=== PATIENT | male | born 1960 | race African-American/Black ===

== ENCOUNTER 2018-01-01 10:44 | Outpatient (CLI) | payer MEDICARE ==
[2018-01-01 11:16] LABS: BASOPHILS % 0.6 (0.0-1.5); MEAN CORPUSCULAR HEMOGLOBIN 30.9 pg (28.0-34.0); MONOCYTES % 5.7 % (0.0-11.0); NEUTROPHILS # 9.4 # k/uL (1.4-7.7)
[2018-01-01 11:32] LABS: eGFR (Non-African) > 60
--- NOTE | 2018-01-01 17:47 | Diagnostic Imaging Report ---
JILLIAN TITUS [facility] [place] [facility] [address] [facility] [address] [address] Report Submission Date: Jan 01, 2018 11:22:26 AM FINISHER PLATE Patient Study Name: ADRIENNE ROJAS Date: Jan 01, 2018 10:54:17 AM FINISHER PLATE Modality Type: DX Gender: M Description: ABDOMEN : 62 Institution: [facility] [place] [facility] Physician: JILLIAN TITUS Examination: Obstruction series History: PT STATES ABDOMINAL PAIN IN THE LUQ X 2 WEEKS. PT STATES NO ABDOMINAL SURGERIES (Hx) Findings: 2 views obtained of the abdomen. No abnormal dilation of the large or small bowel. Air and stool throughout the large bowel. No suspicious calcification projecting over the renal fossa or the lower pelvic region. Pelvic phleboliths. Lumbar spine degenerative changes. Left L5/S1 hemisacralization. Impression: No obstruction. No suspicious calcifications by plain film sensitivity. Electronically signed on Jan 01, 2018 11:22:26 AM FINISHER PLATE by: Genaro LOUIE
== END 2018-01-01 10:45 ==
LOC: LAB 10:44
PROVIDERS: ATTEND Family Medicine
DX: R10.12 Left upper quadrant pain (principal); R10.13 Epigastric pain
CPT/HCPCS: 36415; 74019; 80053; 83690; 85025

== ENCOUNTER 2018-01-02 09:41 | Outpatient (CLI) | payer MEDICARE ==
--- NOTE | 2018-01-02 11:31 | Diagnostic Imaging Report ---
JILLIAN TITUS [facility] [id number] [facility] [address] [place], [place]. [address] Report Submission Date: Jan 02, 2018 11:17:03 AM PROPOSAL COORDINATOR Patient Study Name: ADRIENNE ROJAS Date: Jan 02, 2018 10:18:49 AM PROPOSAL COORDINATOR Modality Type: CT\SR Gender: M Description: CT ABD PELVIS W/ CON : 62 Institution: [facility] Physician: JILLIAN TITUS CT abdomen and pelvis with contrast History: Left upper quadrant pain for 2 weeks. Leukocytosis. Technique: Helically acquired images were obtained from the hemidiaphragms to the pelvic floor following IV contrast. Findings: The liver, spleen, adrenal glands, pancreas and kidneys are unremarkable. Small and large bowel loops are normal in caliber. The abdominal aorta is nonaneurysmal. The appendix is normal. The bladder, seminal vesicles and prostate gland are unremarkable. There are multiple pelvic phleboliths. There is no free fluid in the abdomen or pelvis. There are patchy areas of lucency involving the sacrum and iliac bones bilaterally. These multifocal lytic bone lesions may represent the sequelae of metastatic disease or perhaps myeloma. There is moderate to severe disc space narrowing at L4/5. Impression: There are multifocal lytic bone lesions involving the sacrum and the ilii bilaterally. These findings would be concerning for metastatic disease or potentially myeloma. Please correlate with the patient's clinical history. Bone scan versus pelvic MRI could be obtained for further assessment depending upon the clinical scenario. Otherwise, no acute intra-abdominal or intrapelvic abnormality. Degenerative disc disease at L4/5. Electronically signed on Jan 02, 2018 11:17:03 AM PROPOSAL COORDINATOR by: Priscilla LOUIE
== END 2018-01-02 09:46 | disposition home or self-care (01) ==
LOC: RAD 09:41
PROVIDERS: ATTEND Family Medicine
DX: R10.12 Left upper quadrant pain (principal); D72.825 Bandemia
CPT/HCPCS: 74177; Q9967

== ENCOUNTER 2018-02-24 11:28 | Day surgery (SDC) | payer MEDICARE ==
[~2018-02-24 11:28] MED LIST: GLYCOPYRROLATE 0.2 MG/1 ML 1 ML ONE; LACTATED RINGERS 1,000 ML IV.SOLN IV ONE; LIDOCAINE HCL 2% PF 100MG/5ML VIAL IJ ONE; PROPOFOL 200 MG/20 ML VIAL IV ONE
--- NOTE | 2018-02-24 13:33 | GI Report ---
REFERRING PHYSICIAN: Dr. Justino Banuelos NURSING ADMIN: Lambert Crowder MD PROCEDURE MEDICATION: Propofol as per anesthesia. INDICATIONS: This 58-year-old man has been having a lot of epigastric pain and apparently, back pain and by bone scan, there is a question of metastatic disease to his bone. He has a lot of heartburn, indigestion, and epigastric discomfort. He was a [id number] before stopping 2 years ago. He drinks about 12 beers a week that he admits to. He is referred for an evaluation. On exam, he is kind of a chronically ill-appearing man. Lungs with decreased breath sounds. He is tender all over the epigastric area to palpation. Has kind of a rigid-appearing abdomen. PROCEDURE PERFORMED: Endoscopy and biopsies. PROCEDURE: An Sprooki video endoscope was passed through the esophagus under direct visualization. He has grade 2 esophagitis at the GE junction, though we did biopsy it to rule out Snow's. No obvious tumor. In the cardia of the stomach, no obvious mass. He does have gastritis. Biopsies were taken in the antrum for pathology and H. Pylori. Duodenal bulb was very inflamed. Lot of edema, erythema, friability, and erosions. The first and second part of the duodenum, otherwise, looked normal. Patient tolerated the procedure well. FINDINGS: 1. Esophagitis. 2. Gastritis. 3. Severe duodenitis. RECOMMENDATIONS: 1. I will put him on a PPI daily of omeprazole before meals. 2. Avoid nonsteroidal's. 3. Avoid alcohol and tobacco. 4. Further recommendations pending the biopsy results. 5. He apparently had a colonoscopy 2 years ago in [place] and apparently there were benign polyps. 6. Follow up with Dr. Banuelos. cc: Dr. Justino LOUIE
== END 2018-02-24 12:42 | disposition home or self-care (01) ==
LOC: OPSURG 11:28
PROVIDERS: ATTEND Internal Medicine Gastroenterology
DX: K21.0 Gastro-esophageal reflux disease with esophagitis (principal); K29.70 Gastritis, unspecified, without bleeding; K29.80 Duodenitis without bleeding
CPT/HCPCS: 43239; 88305; J2001; J2704; J3490; J7120; S1016

== ENCOUNTER 2019-01-05 13:44 | Outpatient (CLI) | payer MEDICARE ==
[2019-01-05 14:36] LABS: eGFR (Non-African) > 60
[2019-01-05 15:24] LABS: SEGMENTED NEUTROPHILS % 62 % (39-79)
--- NOTE | 2019-01-05 19:01 | Diagnostic Imaging Report ---
PATIENT MR#: [id number] PATIENT PATIENT NAME: ADRIENNE ROJAS DATE OF : 1960 REFERRING PHYSICIAN: Justino Banuelos EXAM DATE: 01/05/2019 ACCESSION NUMBER: [id number] EXAM DESCRIPTION: CHEST 2VIEW HISTORY: DYSPNEA ON EXERTION, LYTIC LESIONS ON BONE SCAN. COMPARISON: Abdominal radiographs January 01, 2018. CHEST RADIOGRAPH, FRONTAL AND LATERAL: Upper mediastinum: Not widened. Heart: No cardiomegaly. Lungs: Mild elevation of the left hemidiaphragm, with wanting of the costophrenic angle, similar but progress compared to the prior abdominal series. No lobar infiltrate, pulmonary edema, pneumothorax or significant effu anitha. Skeleton: Partial left 7th rib osteotomy. No lytic lesions are specifically observed, although nuclea [facility] medicine bone scan is more sensitive for detection of osseous lesions. IMPRESSION: Elevation of the left hemidiaphragm with chronic blunting and scarring of the left costop hrenic angle associated with left 7th rib partial osteotomy. No acute pulmonary infiltrate. Read by: Dr. Ronald Renteria Transcribed by: Ronald Renteria Transcribed Date: 01/05/2019 7:01:15 PM Electronically signed by: Dr. Ronald Renteria Date signed: 01/05/2019 7:01:15 PM
--- NOTE | 2019-01-05 19:05 | Diagnostic Imaging Report ---
PATIENT MR#: [id number] PATIENT PATIENT NAME: ADRIENNE ROJAS DATE OF : 1960 REFERRING PHYSICIAN: Justino Banuelos EXAM DATE: 01/05/2019 ACCESSION NUMBER: [id number] EXAM DESCRIPTION: L SPINE 2 OR 3 VIEWS CLINICAL HISTORY: CHRONIC BACK PAIN , LYTIC LESIONS ON PELVIS. PT STATES LOW BACK PAIN FOR YEARS, SPINE SURGERY X4 YRS. COMPARISON: No relevant comparison is available at the time of interpretation. L-SPINE XRAY, 3 Views: Vertebral bodies: No compression deformities. No lytic or sclerotic lesions are specifically identifi ed, though nuclear medicine bone scan is more sensitive for detection of osseous lesions. Disc spaces: Moderate-severe degenerative disc disease at L4-5. Mild degenerative disc disease at L5- S1. Alignment: Mild straightening of the normal lumbar lordosis. Minimal grade 1 retrolisthesis of L4 ove r L5. IMPRESSION: Degenerative disc disease more pronounced at L4-5 with minimal grade 1 retrolisthesis. Please note th at nuclear medicine bone scan and MRI are more sensitive for detection of lytic osseous lesions. Read by: Dr. Ronald Renteria Transcribed by: Ronald Renteria Transcribed Date: 01/05/2019 7:04:26 PM Electronically signed by: Dr. Ronald Renteria Date signed: 01/05/2019 7:04:33 PM
== END 2019-01-05 13:49 ==
LOC: LAB 13:44
PROVIDERS: ATTEND Family Medicine
DX: M89.9 Disorder of bone, unspecified (principal); R10.12 Left upper quadrant pain; E80.6 Other disorders of bilirubin metabolism; D72.825 Bandemia; M79.10 Myalgia, unspecified site; R06.09 Other forms of dyspnea; G89.29 Other chronic pain; M54.5 Low back pain
CPT/HCPCS: 36415; 71046; 72100; 80053; 84155; 84165; 85025; 85651

== ENCOUNTER 2019-02-09 14:35 | Outpatient (CLI) | payer MEDICARE | END 2019-02-09 14:40 | LOC: LABRHC 14:35 | PROVIDERS: ATTEND Family Medicine | DX: L85.3 Xerosis cutis (principal) ==